=== PATIENT | male | born 1980 | race African-American/Black ===

== ENCOUNTER 2019-01-14 11:05 | Emergency (ER) | payer SELFPAY ==
[~2019-01-14] VITALS: Ht 177.8 cm; Wt 96.0 kg
[2019-01-14 11:30] VITALS: BP 144/88
[2019-01-14] MEDS ORDERED: LIDOCAINE HCL 1% 20ML VIAL (Pyxis) INJ INFIL ONE (14:15)
== END 2019-01-14 15:13 | disposition home or self-care (01) ==
LOC: ER 11:05
DX: S61.211A Laceration without foreign body of left index finger without damage to nail, initial encounter (principal); W45.8XXA Other foreign body or object entering through skin, initial encounter; Y93.89 Activity, other specified; Y92.89 Other specified places as the place of occurrence of the external cause; Y99.8 Other external cause status; Z98.890 Other specified postprocedural states
CPT/HCPCS: 12002; 99283; J3490

== ENCOUNTER 2020-06-01 05:40 | Emergency (ER) | payer MEDICAID ==
[~2020-06-01] VITALS: Ht 177.8 cm; Wt 96.0 kg
[2020-06-01] MEDS ORDERED: SODIUM CHLORIDE 0.9% 1,000 ML IV ONE (06:17)
[2020-06-01] MEDS ORDERED: ACETAMINOPHEN 325MG TABLET PO STA (06:17)
[2020-06-01 06:51] LABS: BASOPHILS % 0.3 % (0.0-2.0); EOSINOPHILS % 0.4 % (0.0-5.0); HEMATOCRIT. 45.6 % (42.0-52.0); HEMOGLOBIN. 15.6 g/dL (14.0-18.0); LYMPHOCYTES % 17.2 % (20.0-50.0); MEAN CORPUSCULAR HEMOGLOBIN 31.2 pg (28.0-32.0); MEAN CORPUSCULAR VOLUME 91.4 fL (80.0-94.0); MONOCYTES % 6.6 % (2.0-8.0); NEUTROPHILS % 75.5 % (40.0-76.0); RED BLOOD CELL COUNT 4.99 mill/uL (4.7-6.1); RED CELL DISTRIBUTION WIDTH 13.9 % (11.6-14.6)
[2020-06-01 07:10] LABS: PROTHROMBIN TIME 10.4 sec (9.6-11.0)
[2020-06-01 07:12] LABS: CHLORIDE 106 mEq/L (98-107)
[2020-06-01 07:14] LABS: MEAN PLATELET VOLUME 10.1 fl (7.4-10.4); PLATELET 154 x1000/uL (130-400)
[2020-06-01 09:20] VITALS: BP 109/62
== END 2020-06-01 09:30 | disposition home or self-care (01) ==
LOC: ER 05:52 → CANBEDREQ 20:58
DX: Z20.828 Contact with and (suspected) exposure to other viral communicable diseases (principal); B34.9 Viral infection, unspecified; F17.200 Nicotine dependence, unspecified, uncomplicated
CPT/HCPCS: 36415; 71045; 80053; 83605; 84145; 84484; 85025; 85610; 87040; 87635; 93005; 96360; 96361; 99285; J7030